=== PATIENT | female | born 1970 | race Caucasian/White ===

== ENCOUNTER 2018-06-02 03:14 | Emergency (ER) | payer OTHER ==
[2018-06-02] MEDS: METHYLPREDNISOLONE 125 MG INJ IM (03:43)
[2018-06-02] MEDS: ALBUTEROL 0.083% (NEB) 2.5 MG/3 ML AMP HHN ×2 (04:01→05:08)
[2018-06-02] MEDS: IPRATROPIUM (NEB) 0.5 MG/2.5 ML AMP HHN ×2 (04:01→05:08)
== END 2018-06-02 05:39 | disposition home or self-care (01) ==
LOC: FTE 03:14
DX: R06.02 Shortness of breath (principal)
CPT/HCPCS: 71045; 94640; 94664; 96372; 99284-25

== ENCOUNTER 2018-08-27 14:45 | Emergency (ER) | payer SELFPAY, OTHER | END 2018-08-27 17:20 | disposition left against medical advice (07) | LOC: E/R 17:20 | DX: Z53.21 Procedure and treatment not carried out due to patient leaving prior to being seen by health care provider (principal) ==